=== PATIENT | female | born 1960 | race Caucasian/White ===

== ENCOUNTER 2018-10-09 18:05 | Emergency (ER) | payer BC ==
--- NOTE | 2018-10-09 19:10 | EDM.PDOC ---
ED HPI GENERAL MEDICAL PROBLEM - General Chief Complaint: Bite:Animal, Insect Stated Complaint: CAT BITE Time Seen by Provider: 10/09/18 19:00 Source of Information: Reports: Patient, Family History Limitations: Reports: No Limitations - History of Present Illness INITIAL COMMENTS - FREE TEXT/NARRATIVE: 57-year-old female that got bitten by a cat on her right hand this morning, now has significant swelling of the ring finger and pain. Onset: Sudden Duration: Hour(s): (10 hours ago) Location: Reports: Upper Extremity, Left Associated Symptoms: Reports: No Other Symptoms. Denies: Fever/Chills, Headaches, Loss of Appetite, Nausea/Vomiting Left Upper Finger-Ring Pain Score (Numeric/FACES): 10 - Related Data Allergies Allergy/AdvReac Type Severity Reaction Status Date / Time No Known Allergies Allergy Verified 10/09/18 18:52 Home Meds: Home Meds Atenolol 100 mg PO DAILY 10/09/18 [History] Cyproheptadine 2 mg PO DAILY 10/09/18 [History] Erenumab-Aooe [Aimovig Autoinjector] 70 mg IM ASDIRECTED 10/09/18 [History] Levothyroxine [Synthroid] 88 mcg PO DAILY 10/09/18 [History] Lisinopril/Hydrochlorothiazide [Lisinopril-Hctz 10-12.5 mg Tab] 1 each PO DAILY 10/09/18 [History] Omeprazole 20 mg PO DAILY 10/09/18 [History] Simvastatin [Zocor] 40 mg PO DAILY 10/09/18 [History] Topiramate 25 mg PO DAILY 10/09/18 [History] Topiramate [Trokendi Xr] 50 mg PO DAILY 10/09/18 [History] hydrOXYzine HCl [hydrOXYzine] 50 mg IM DAILY 10/09/18 [History] Past Medical History Cardiovascular History: Reports: Hypertension, [place] [employer] History: Reports: Endocrine/Metabolic History: Reports: Hypothyroidism - Past Surgical History Cardiovascular Surgical History: Reports: Other (See Below) Other Cardiovascular Surgeries/Procedures: angiogram Social & Family History - Tobacco Use Smoking Status *Q: Former Smoker Packs/Tins Daily: 1 Used Tobacco, but Quit: Yes Month/Year Tobacco Last Used: 04/2009 - Caffeine Use Caffeine Use: Reports: Coffee, Soda, Tea Caffeine Use Comment: daily use - Recreational Drug Use Recreational Drug Use: No ED ROS GENERAL - Review of Systems Review Of Systems: See Below Constitutional: Denies: Fever, Chills HEENT: Reports: No Symptoms Respiratory: Denies: Shortness of Breath GI/Abdominal: Denies: Abdominal Pain, Nausea, Vomiting Skin: Reports: Other (Slight discoloration of the pulp of the finger with pallor and swelling of the remainder of the finger) ED EXAM, ANIMAL BITE - Physical Exam Exam: See Below Exam Limited By: No Limitations General Appearance: Alert, No Apparent Distress, Other (Significant discomfort from pain but no distress) Respiratory/Chest: No Respiratory Distress Extremities: Other (Exam is otherwise limited to the left arm. She has several small puncture wounds in the hand, 2 in the ring finger with significant edema, swelling and tenderness and slight bruising with radiation of bruising into the left hand. Significant discomfort with active flexion and extension of the ring finger) Course - Vital Signs Last Recorded V/S: Last Vital Signs Temp 96.5 F 10/09/18 18:47 Pulse 62 10/09/18 18:47 Resp 16 10/09/18 18:47 BP 145/78 H 10/09/18 18:47 Pulse Ox 100 10/09/18 18:47 - Re-Assessments/Exams Free Text/Narrative Re-Assessment/Exam: 10/09/18 19:31 X-ray of the head was negative for fracture or foreign body. Patient was started on Augmentin 875 mg twice daily, encouraged to continue with warm compresses and elevation to the hand and also supplied with 10 hydrocodone for extra pain control. An anti-inflammatory such as ibuprofen or naproxen will also help. Return in the next 24-48 hours if worsening despite treatment. Departure - Departure Time of Disposition: 20:05 Disposition: Home, Self-Care 01 Clinical Impression: Cat bite of hand Qualifiers: Encounter type: initial encounter Laterality: left Qualified Code(s): S61.452A - Open bite of left hand, initial encounter - Discharge Information Instructions: Animal Bite, Adult Referrals: PCP,None [Primary Care Provider] - Forms: ED Department Discharge Care Plan Goals: Antibiotic with food twice daily for at least 5-7 days and up to 10 days. Slight warmth and elevation to the hand will be beneficial while on antibiotics , also take a regular dose of ibuprofen or naproxen and add stronger pain medications as directed if needed. Recheck in 24-48 hours if worsening despite antibiotic treatment.
--- NOTE | 2018-10-09 19:29 | CRLCR ---
INDICATION: Hand swelling following capped by 2 4th digit TECHNIQUE: Three views left hand COMPARISON: None FINDINGS: Bones: Alignment is normal. No fractures or bone lesions. Joint spaces: Unremarkable. Soft tissues: Soft tissue edema adjacent to the 4th PIP joint. IMPRESSION: Soft tissue edema adjacent to the 4th PIP joint. No fractures or radiopaque foreign bodies. Dictated by Khoi Balderas MD @ 10/09/2018 7:27:33 PM Dictated by: Khoi Balderas MD @ 10/09/2018 19:27:36 (Electronically Signed)
== END 2018-10-09 20:00 | disposition home or self-care (01) ==
LOC: JP.ED 18:05
DX: S61.452A Open bite of left hand, initial encounter (principal); I10 Essential (primary) hypertension; I25.2 Old myocardial infarction; E03.9 Hypothyroidism, unspecified; Z79.899 Other long term (current) drug therapy; Z87.891 Personal history of nicotine dependence; W55.01XA Bitten by cat, initial encounter
CPT/HCPCS: 73130-LT; 99283-25